=== PATIENT | female | born 1970 | race Caucasian/White ===

== ENCOUNTER → 2016-12-19 | Outpatient (CLI) | payer MEDICAID ==
[~2016-12-19] MED LIST: ALBU18HF INH; AMIT25TA PO; DIAZ5TAB PO; GABA300C10 PO; GADOBUTROL 10 MMOL/10 ML PFS ONE; METR500T PO; MULT-516 PO; OXYC-302 PO; OXYC1TAB7 PO; VERA80TA2 PO
== END | disposition home or self-care (01) ==
LOC: CFH 14:44
PROVIDERS: ATTEND Registered Nurse
DX: M48.02 Spinal stenosis, cervical region (principal); M54.12 Radiculopathy, cervical region; M25.78 Osteophyte, vertebrae; Z98.890 Other specified postprocedural states
CPT/HCPCS: 72156; A9585

== ENCOUNTER → 2017-08-21 | Outpatient (CLI) | payer MEDICAID ==
[~2017-08-21] MED LIST changes: -GADOBUTROL 10 MMOL/10 ML PFS ONE
== END | disposition home or self-care (01) ==
LOC: RAD 16:18
PROVIDERS: ATTEND Registered Nurse
DX: M54.12 Radiculopathy, cervical region (principal)
CPT/HCPCS: 72040

== ENCOUNTER 2017-09-18 09:21 | Emergency (ER) | payer MEDICAID ==
[~2017-09-18] VITALS: Ht 157.5 cm; Wt 75.0 kg
[2017-09-18] MEDS ORDERED: SODIUM CHLORIDE 0.9% 1,000 ML IV ONE (11:24)
[2017-09-18] MEDS ORDERED: SODIUM CHLORIDE FLUSH 10ML SYR IVF ONE (11:30)
[2017-09-18] MEDS ORDERED: SODIUM CHLORIDE 0.9% 1,000ML IVBOLUS ONE (11:30)
[2017-09-18] MEDS ORDERED: ONDANSETRON 2MG/ML, 2ML IVPush ONE (11:30)
[2017-09-18] MEDS ORDERED: HYDROmorphone 1 MG/ML, 1ML IVPush PRN (11:30)
[2017-09-18] MEDS ORDERED: HYDROmorphone 2 MG/ML, 1ML ONE ×3 (11:58→13:31)
[2017-09-18] MEDS ORDERED: ONDANSETRON 2MG/ML, 2ML ONE (11:58)
[2017-09-18 12:11] LABS: BASOPHILS # (AUTO) 0.09 x10^3/uL (0-0.1); BASOPHILS % (AUTO) 1 % (0-1); EOSINOPHILS # (AUTO) 0.01 x10^3/uL (0-0.4); EOSINOPHILS % (AUTO) 0 % (1-7); LYMPHOCYTES # (AUTO) 2.92 x10^3/uL (1-3.4); LYMPHOCYTES % (AUTO) 21 % (22-44); MD NO; MEAN CORPUSCULAR HEMOGLOBIN 31.2 pg (27.0-34.8); MEAN CORPUSCULAR HGB CONC 33.7 g/dL (32.4-35.8); MEAN CORPUSCULAR VOLUME 92.6 fL (80-100); MEAN PLATELET VOLUME 8.8 fL (7.4-10.4); MONOCYTES # (AUTO) 0.59 x10^3/uL (0.2-0.8); MONOCYTES % (AUTO) 4 % (2-9); NEUTROPHILS # (AUTO) 10.58 x10^3/uL (1.8-6.8); NEUTROPHILS % (AUTO) 75 % (42-75); PLATELET COUNT 288 x10^3/uL (130-400); RED BLOOD COUNT 4.49 x10^6/uL (3.82-5.3); RED CELL DISTRIBUTION WIDTH 13.6 % (9.6-15.2)
[2017-09-18 12:13] LABS: ALANINE AMINOTRANSFERASE 21 U/L (12-78); ALBUMIN 3.2 g/dL (3.4-5.0); ANION GAP 6 mmol/L (5-15); CALCIUM 8.6 mg/dL (8.5-10.1); CHLORIDE 104 mmol/L (98-107); CREATININE 0.76 mg/dL (0.55-1.02)
[2017-09-18 12:15] LABS: ALKALINE PHOSPHATASE 82 U/L (45-117); BILIRUBIN,TOTAL 0.6 mg/dL (0.2-1.0); TOTAL PROTEIN 7.5 g/dL (6.4-8.2)
[2017-09-18] MEDS ORDERED: ONDANSETRON ODT 4 MG ONE (12:51)
[2017-09-18] MEDS ORDERED: ONDANSETRON ODT 4 MG PO ONE (13:00)
[2017-09-18] MEDS ORDERED: HYDROmorphone 1 MG/ML, 1ML IM ONE (13:00)
[2017-09-18 13:31] VITALS: BP 121/73
== END 2017-09-18 13:26 | disposition home or self-care (01) ==
LOC: ED 13:05
DX: R10.11 Right upper quadrant pain (principal); R10.13 Epigastric pain; I10 Essential (primary) hypertension; G43.909 Migraine, unspecified, not intractable, without status migrainosus; Z90.710 Acquired absence of both cervix and uterus
CPT/HCPCS: 36415; 76700; 80053; 83605; 83690; 85025; 93005; 96372; 99285; J1170; Q0162

== ENCOUNTER → 2017-09-29 | Outpatient (CLI) | payer OTHER ==
[~2017-09-29] MED LIST changes: +GADOBUTROL 7.5 MMOL/7.5 ML VIAL ONE
== END | disposition home or self-care (01) ==
LOC: CFH 13:15
PROVIDERS: ATTEND Registered Nurse
DX: M54.12 Radiculopathy, cervical region (principal); Z98.890 Other specified postprocedural states
CPT/HCPCS: 72050; 72156; A9585

== ENCOUNTER 2018-02-02 17:00 | Emergency (ER) | payer MEDICAID, OTHER ==
[~2018-02-02] VITALS: Ht 157.5 cm; Wt 74.0 kg
[~2018-02-02 17:00] MED LIST changes: -GADOBUTROL 7.5 MMOL/7.5 ML VIAL ONE
[2018-02-02 17:14] VITALS: BP 156/98
[2018-02-02] MEDS ORDERED: OXYcodone/APAP 5/325MG TABLET ONE (18:20)
[2018-02-02] MEDS ORDERED: OXYcodone/APAP 5/325MG TABLET PO ONE (18:30)
== END 2018-02-02 18:31 | disposition home or self-care (01) ==
LOC: ED 18:15
DX: S63.522A Sprain of radiocarpal joint of left wrist, initial encounter (principal); G43.909 Migraine, unspecified, not intractable, without status migrainosus; I10 Essential (primary) hypertension; F17.210 Nicotine dependence, cigarettes, uncomplicated; M79.7 Fibromyalgia; Z90.710 Acquired absence of both cervix and uterus; Z88.5 Allergy status to narcotic agent; Z88.2 Allergy status to sulfonamides; W01.0XXA Fall on same level from slipping, tripping and stumbling without subsequent striking against object, initial encounter; Y93.89 Activity, other specified; Y92.488 Other paved roadways as the place of occurrence of the external cause; Y99.2 Volunteer activity
CPT/HCPCS: 29260; 99284

== ENCOUNTER → 2018-07-26 | Outpatient (CLI) | payer MEDICAID | END | disposition home or self-care (01) | LOC: CARD 08:48 | PROVIDERS: ATTEND Family Medicine | DX: R06.02 Shortness of breath (principal); R07.9 Chest pain, unspecified; I10 Essential (primary) hypertension; R60.0 Localized edema; E78.5 Hyperlipidemia, unspecified; Z87.891 Personal history of nicotine dependence | CPT/HCPCS: 93017; 93350 ==

== ENCOUNTER 2018-11-14 16:55 | Emergency (ER) | payer MEDICAID ==
[~2018-11-14] VITALS: Ht 157.5 cm; Wt 78.9 kg
[2018-11-14 18:03] LABS: BASOPHILS # (AUTO) 0.09 x10^3/uL (0-0.1); BASOPHILS % (AUTO) 1 % (0-1); EOSINOPHILS # (AUTO) 0.24 x10^3/uL (0-0.4); EOSINOPHILS % (AUTO) 3 % (1-7); LYMPHOCYTES # (AUTO) 4.17 x10^3/uL (1-3.4); LYMPHOCYTES % (AUTO) 50 % (22-44); MD NO; MEAN CORPUSCULAR HEMOGLOBIN 30.6 pg (27.0-34.8); MEAN CORPUSCULAR HGB CONC 34.2 g/dL (32.4-35.8); MEAN CORPUSCULAR VOLUME 89.7 fL (80-100); MEAN PLATELET VOLUME 8.8 fL (7.4-10.4); MONOCYTES # (AUTO) 0.59 x10^3/uL (0.2-0.8); MONOCYTES % (AUTO) 7 % (2-9); NEUTROPHILS # (AUTO) 3.31 x10^3/uL (1.8-6.8); NEUTROPHILS % (AUTO) 39 % (42-75); PLATELET COUNT 346 x10^3/uL (130-400); RED BLOOD COUNT 4.79 x10^6/uL (3.82-5.3); RED CELL DISTRIBUTION WIDTH 13.8 % (9.6-15.2)
[2018-11-14 18:13] LABS: ALANINE AMINOTRANSFERASE 25 U/L (12-78); ALBUMIN 3.6 g/dL (3.4-5.0); ANION GAP 5 mmol/L (5-15); CHLORIDE 108 mmol/L (98-107); CREATININE 0.94 mg/dL (0.55-1.02)
[2018-11-14 18:15] LABS: ALKALINE PHOSPHATASE 95 U/L (45-117); BILIRUBIN,TOTAL 0.3 mg/dL (0.2-1.0); TOTAL PROTEIN 7.7 g/dL (6.4-8.2)
--- NOTE | 2018-11-14 18:17 | NUR ---
ALL RESULTS BACK, PT FOR RECHECK.
[2018-11-14] MEDS ORDERED: DULOXETINE 30 MG CAPSULE.DR PO SCH (18:30)
[2018-11-14] MEDS ORDERED: DULOXETINE 30 MG CAPSULE.DR PO ONE (19:00)
--- NOTE | 2018-11-14 19:00 | NUR ---
MED REQUEST FOR [facility] SENT TO PHARMACY. DISCHARGE FOLLOWING MED.
[2018-11-14 20:15] VITALS: BP 122/68
== END 2018-11-14 20:19 | disposition home or self-care (01) ==
LOC: ED 17:34
DX: R55 Syncope and collapse (principal); Z76.0 Encounter for issue of repeat prescription; F17.200 Nicotine dependence, unspecified, uncomplicated
CPT/HCPCS: 36415; 71045; 80053; 85025; 93005; 99284

== ENCOUNTER 2019-03-18 10:58 | Emergency (ER) | payer MEDICAID ==
[~2019-03-18] VITALS: Ht 157.5 cm; Wt 79.7 kg
--- NOTE | 2019-03-18 11:10 | NUR ---
assumed care of pt. pt here c/o L sided CP, epigastric pain radiating to back and nausea s/o 30 minutes [employer]. pt states that she has a hx of chronic L shoulder pain and that this feel different. pt states that she has been out of her pain meds for 1 week. pt is having nausea but no vomiting. c/o of feeling SOB but is speaking full sentences without difficulty. no family at bedside.
--- NOTE | 2019-03-18 11:25 | NUR ---
Dr Gutierrez at bedside for eval. no IV to be placed at this time. pt updated on POC. positioning for comfort
[2019-03-18] MEDS ORDERED: HYDR50TA3 PO (11:26)
[2019-03-18] MEDS ORDERED: DULO60CA7 PO (11:26)
[2019-03-18] MEDS ORDERED: HYDR50TA13 PO (11:26)
[2019-03-18] MEDS ORDERED: TIZA4CAP PO (11:26)
[2019-03-18] MEDS ORDERED: ATOR-2 PO (11:26)
[2019-03-18] MEDS ORDERED: DIAZEPAM 5 MG TABLET PO ONE (11:30)
[2019-03-18] MEDS ORDERED: KETOROLAC 60 MG/2 ML IM ONE (11:30)
[2019-03-18] MEDS ORDERED: KETOROLAC 60 MG/2 ML ONE (11:39)
[2019-03-18] MEDS ORDERED: ONDANSETRON ODT 4 MG ONE (11:40)
[2019-03-18] MEDS ORDERED: DIAZEPAM 5 MG TABLET ONE (11:40)
--- NOTE | 2019-03-18 11:49 | NUR ---
pt medicated per order. pt advised not to drive after taking valium. pt verbalized understanding. pt states that she does not drive and that her brother will pick her up. pt sitting up on gurney talking on cell phone.
[2019-03-18] MEDS ORDERED: ONDANSETRON ODT 4 MG PO ONE (12:00)
[2019-03-18 12:05] LABS: BASOPHILS # (AUTO) 0.07 x10^3/uL (0-0.1); BASOPHILS % (AUTO) 1 % (0-1); EOSINOPHILS # (AUTO) 0.17 x10^3/uL (0-0.4); EOSINOPHILS % (AUTO) 2 % (1-7); LYMPHOCYTES # (AUTO) 2.88 x10^3/uL (1-3.4); LYMPHOCYTES % (AUTO) 38 % (22-44); MD NO; MEAN CORPUSCULAR HEMOGLOBIN 30.8 pg (27.0-34.8); MEAN CORPUSCULAR HGB CONC 33.6 g/dL (32.4-35.8); MEAN CORPUSCULAR VOLUME 91.6 fL (80-100); MEAN PLATELET VOLUME 8.6 fL (7.4-10.4); MONOCYTES # (AUTO) 0.35 x10^3/uL (0.2-0.8); MONOCYTES % (AUTO) 5 % (2-9); NEUTROPHILS # (AUTO) 4.08 x10^3/uL (1.8-6.8); NEUTROPHILS % (AUTO) 54 % (42-75); PLATELET COUNT 356 x10^3/uL (130-400); RED BLOOD COUNT 4.32 x10^6/uL (3.82-5.3)
[2019-03-18 12:13] LABS: ALBUMIN 3.2 g/dL (3.4-5.0); ANION GAP 5 mmol/L (5-15); CALCIUM 8.8 mg/dL (8.5-10.1); CHLORIDE 111 mmol/L (98-107); CREATININE 0.86 mg/dL (0.55-1.02)
[2019-03-18 12:17] LABS: TROPONIN I < 0.015 ng/mL (0.000-0.045)
--- NOTE | 2019-03-18 12:22 | NUR ---
pt reports that her pain has decreased to 3/10 after meds. resting in position of comfort. awaiting test results
[2019-03-18 13:04] VITALS: BP 140/79
== END 2019-03-18 13:07 | disposition home or self-care (01) ==
LOC: ED 12:40
DX: R07.89 Other chest pain (principal); M79.18 Myalgia, other site; F17.200 Nicotine dependence, unspecified, uncomplicated; I10 Essential (primary) hypertension; G43.909 Migraine, unspecified, not intractable, without status migrainosus; Z90.710 Acquired absence of both cervix and uterus
CPT/HCPCS: 36415; 71045; 80048; 82040; 84484; 85025; 93005; 96372; 99284; J1885; Q0162

== ENCOUNTER 2019-07-30 17:09 | Emergency (ER) | payer MEDICAID ==
[~2019-07-30] VITALS: Ht 157.5 cm; Wt 78.7 kg
[~2019-07-30 17:09] MED LIST changes: +ATOR-2 PO; +DULO60CA7 PO; +HYDR50TA13 PO; +HYDR50TA3 PO; +TIZA4CAP PO
[2019-07-30 17:19] VITALS: BP 175/111
[2019-07-30] MEDS ORDERED: ACETAMINOPHEN 500 MG TABLET ONE (17:55)
[2019-07-30] MEDS ORDERED: ACETAMINOPHEN 500 MG TABLET PO ONE (18:00)
[2019-07-30] MEDS ORDERED: IBUPROFEN 200 MG TABLET PO ONE (18:00)
--- NOTE | 2019-07-30 18:02 | NUR ---
PT TO CT
[2019-07-30] MEDS ORDERED: LIDOCAINE 1%-EPI 1:100K, 20ML ONE (18:46)
--- NOTE | 2019-07-30 18:52 | NUR ---
ASSUMED CARE FOR THIS PT. LAC IRRIGATED ERP TO BEDSIDE TO SUTURE LAC.
[2019-07-30] MEDS ORDERED: LIDOCAINE 1%-EPI 1:100K, 20ML SQ ONE (19:00)
[2019-07-30] MEDS ORDERED: DIPH,PERTUSS(ACELL),TET VAC/PF NC IM-VACC ONE (19:30)
[2019-07-30] MEDS ORDERED: KETOROLAC 30 MG/1 ML ONE (19:50)
[2019-07-30] MEDS ORDERED: DIPH,PERTUSS(ACELL),TET VAC/PF 0.5 ML IM-VACC ONE (19:51)
[2019-07-30] MEDS ORDERED: KETOROLAC 30 MG/1 ML IM ONE (20:00)
== END 2019-07-30 20:06 | disposition home or self-care (01) ==
LOC: ED 17:56
DX: S01.112A Laceration without foreign body of left eyelid and periocular area, initial encounter (principal); S01.81XA Laceration without foreign body of other part of head, initial encounter; M25.532 Pain in left wrist; M54.2 Cervicalgia; W01.0XXA Fall on same level from slipping, tripping and stumbling without subsequent striking against object, initial encounter; Y93.89 Activity, other specified; Y92.009 Unspecified place in unspecified non-institutional (private) residence as the place of occurrence of the external cause; Y99.8 Other external cause status
CPT/HCPCS: 12011; 29260; 70450; 70486; 72125; 73130; 90471; 90715; 96372; 99284; J1885; J3490